=== PATIENT | female | born 1990 | race African-American/Black ===

== ENCOUNTER 2017-01-26 07:01 | Emergency (ER) | payer OTHER ==
[~2017-01-26] VITALS: Ht 175.3 cm; Wt 104.3 kg
[~2017-01-26 07:01] MED LIST: TRAMADOL HCL50 MG ORAL
[2017-01-26] MEDS ORDERED: NKM (07:22)
[2017-01-26 07:27] VITALS: BP 104/70
--- NOTE | 2017-01-26 07:32 | Emergency Room Report ---
History of Present Illness General Chief Complaint: Abdominal Pain Source: Patient Present Illness HPI Patient presents with suprapubic discomfort Reports that it started yesterday She feels a pressure when she urinates Patient states that she feels like it's a bladder infection she has had it before in the past Denies any fevers or chills denies any vomiting or diarrhea Denies any right lower quadrant pain denies any recent trauma Allergies: Coded Allergies: ACETAMINOPHEN (Unverified Allergy, Unknown, 12/27/13) HYDROCODONE (Unverified Allergy, Unknown, 12/27/13) Patient History Past Medical History: see triage record Pertinent Family History: none Last Menstrual Period: "2 months ago." Reviewed Nursing Documentation: PMH: Agreed, PSxH: Agreed Nursing Documentation-PMH Past Medical History: No History, Except For Hx Asthma: Yes Review of Systems All Other Systems: negative except mentioned in HPI Physical Exam Vital Signs Date Time Temp Pulse Resp B/P (MAP) Pulse Ox O2 Delivery O2 Flow Rate FiO2 01/26/17 07:17 98.1 85 17 104/70 99 Room Air Sp02 EP Interpretation: reviewed, normal General Appearance: well appearing, no apparent distress Head: normocephalic, atraumatic Eyes: bilateral eye PERRL, bilateral eye EOMI ENT: hearing grossly normal, normal pharynx, TMs + canals normal, uvula midline Neck: full range of motion, supple, no meningismus, no bony tend Respiratory: lungs clear, normal breath sounds, no rhonchi, no respiratory distress, no retraction, no accessory muscle use Cardiovascular #1: normal peripheral pulses, regular rate, rhythm, no edema, no gallop, no JVD, no murmur Gastrointestinal: normal bowel sounds, non tender - Subjectively however points to the suprapubic area, soft, no mass, no organomegaly, non-distended, no guarding, no hernia, no pulsatile mass, no rebound Genitourinary: no CVA tenderness Musculoskeletal: normal inspection Neurologic: oriented x3, responsive, progressive care manager III-XII nml as tested, motor strength/ tone normal, sensory intact Psychiatric: mood/affect normal Skin: normal color, no rash, warm/dry, palpation normal Lymphatic: normal inspection, no adenopathy Medical Decision Making Diagnostic Impression: Primary Impression: Abdominal pain Additional Impression: UTI (urinary tract infection) ER Course With the patient's history and examination, multiple differentials considered, including but not limited to , ectopic , ovarian torsion, gastritis, cholecystitis, pancreatitis, appendicitis Patient's a urine sample shows leukocytes and bacteria At this time I had discussion with the patient regarding her pain There are some indications for further evaluation of possible early appendicitis However the patient feels that she has a UTI does not want to have any further radiation At this time given her reevaluation she will have initial conservative outpatient trial It was again discussed regarding any increased pain localizing of the pain to the right side or any other discomfort to return to the ER more emergently , Labs Test 01/26/17 07:25 Urine Color Yellow Urine Appearance Clear Urine pH 6 (4.5-8.0) Urine Specific [place] 1.020 (1.005-1.035) Urine Protein Negative (NEGATIVE) Urine Glucose (UA) Negative (NEGATIVE) Urine Ketones Negative (NEGATIVE) Urine Occult Blood Negative (NEGATIVE) Urine Nitrite Negative (NEGATIVE) Urine Bilirubin Negative (NEGATIVE) Urine Urobilinogen 4 MG/DL (0.0-1.0) Urine Leukocyte Esterase 2+ (NEGATIVE) Urine RBC 2-4 /HPF (0 - 2) Urine WBC 15-20 /HPF (0 - 2) Urine Squamous Epithelial Cells Many /LPF (NONE/OCC) Urine Bacteria Few /HPF (NONE) Urine HCG, Qualitative Negative Last Vital Signs Date Time Temp Pulse Resp B/P (MAP) Pulse Ox O2 Delivery O2 Flow Rate FiO2 01/26/17 07:27 98.1 85 17 104/70 99 Room Air Status: improved Disposition: HOME, SELF-CARE Condition: Stable Scripts Phenazopyridine Hcl* (PYRIDIUM*) 100 Mg Tablet 100 MG ORAL THREE TIMES A DAY, #12 TAB Prov: YASMANY MORAN D.O. 01/26/17 Trimethoprim/Sulfamethoxazole 160/800* (BACTRIM DS TABLET*) 1 Each Tablet 1 TAB ORAL Q12H, #14 TAB 0 Refills Prov: YASMANY MORAN D.O. 01/26/17 Additional Instructions: Patient is provided with the discharge instructions notified to follow up with primary doctor in the next 2-3 days otherwise return to the er with any worsening symptoms. Please note that this report is being documented using [employer] technology. This can lead to erroneous entry secondary to incorrect interpretation by the dictating instrument. YASMANY MORAN D.O. Jan 26, 2017 07:32
[2017-01-26 07:54] LABS: APPEARANCE,URINE CLEAR; KETONES,URINE NEGATIVE (NEGATIVE); LEUKOCYTE ESTERASE ,URINE 2+ (NEGATIVE); NITRITE,URINE NEGATIVE (NEGATIVE); PH,URINE 6 (4.5-8.0); PROTEIN,URINE NEGATIVE (NEGATIVE); UROBILINOGEN,URINE 4 MG/DL (0.0-1.0)
[2017-01-26] MEDS ORDERED: BACTRIM DS TAB1 EAC1 ORAL (08:07)
[2017-01-26] MEDS ORDERED: PHENAZOPYRIDIN100 MG ORAL (08:07)
[2017-01-26 08:09] LABS: BACTERIA,URINE FEW /HPF; SQUAMOUS EPITHELIAL CELL,UR MANY /LPF (NONE/OCC); WBC,URINE 15-20 /HPF (0 - 2)
[2017-01-26 08:46] VITALS: BP 104/70
[2017-01-31] MEDS ORDERED: KEFLEX500 MG ORAL (10:13)
--- NOTE | 2017-02-06 21:22 | Emergency Room Report ---
Physical Exam Vital Signs Date Time Temp Pulse Resp B/P (MAP) Pulse Ox O2 Delivery O2 Flow Rate FiO2 01/26/17 07:17 98.1 85 17 104/70 99 Room Air Medical Decision Making Diagnostic Impression: Primary Impression: Abdominal pain Additional Impression: UTI (urinary tract infection) ER Course I spoke the patient on the phone. at 9:20 PM on 2016. She was prescribed Bactrim for UTI. She received a letter in the mail so she called back. Her treatment was about 2 weeks ago. She is completely asymptomatic. She has no urinary complaint. No dysuria or abdominal pain. I recommend routine followup with her primary care DrAlberto for recheck a urinalysis. I see no need for taking antibiotics since she is asymptomatic right now. Last Vital Signs Date Time Temp Pulse Resp B/P (MAP) Pulse Ox O2 Delivery O2 Flow Rate FiO2 01/26/17 08:46 98.1 85 17 104/70 99 Room Air Disposition: HOME, SELF-CARE Condition: Stable Scripts Cephalexin* (KEFLEX*) 500 Mg Capsule 500 MG ORAL Q6H for 7 Days, #28 CAP 0 Refills Prov: BUFFY PIMENTEL M.D. 01/31/17 Phenazopyridine Hcl* (PYRIDIUM*) 100 Mg Tablet 100 MG ORAL THREE TIMES A DAY, #12 TAB Prov: YASMANY MORAN D.O. 01/26/17 Trimethoprim/Sulfamethoxazole 160/800* (BACTRIM DS TABLET*) 1 Each Tablet 1 TAB ORAL Q12H, #14 TAB 0 Refills Prov: YASMANY MORAN D.O. 01/26/17 Referrals: NON PHYSICIAN (PCP) Patient Instructions: Urinary Tract Infection, [id number], Abdominal Pain, Adult Additional Instructions: Patient is provided with the discharge instructions notified to follow up with primary doctor in the next 2-3 days otherwise return to the er with any worsening symptoms. Please note that this report is being documented using [employer] technology. This can lead to erroneous entry secondary to incorrect interpretation by the dictating instrument. BASIM TIRADO M.D. Feb 06, 2017 21:22
== END 2017-01-26 08:48 | disposition home or self-care (01) ==
LOC: EMR 07:37
DX: R10.30 Lower abdominal pain, unspecified (principal); N39.0 Urinary tract infection, site not specified; J45.909 Unspecified asthma, uncomplicated; Z88.6 Allergy status to analgesic agent
CPT/HCPCS: 81003; 81025; 87086; 87181; 99284

== ENCOUNTER 2017-07-05 23:27 | Emergency (ER) | payer OTHER ==
[~2017-07-05] VITALS: Ht 175.3 cm; Wt 113.4 kg
[~2017-07-05 23:27] MED LIST changes: +BACTRIM DS TAB1 EAC1 ORAL; +KEFLEX500 MG ORAL; +NKM; +PHENAZOPYRIDIN100 MG ORAL
[2017-07-05 23:50] VITALS: BP 130/94
[2017-07-06] MEDS ORDERED: AMOXICILLIN500 MG ORAL (00:33)
[2017-07-06] MEDS ORDERED: IBUPROFEN600 M1 PO (00:33)
[2017-07-06 00:41] VITALS: BP 130/94
--- NOTE | 2017-07-06 07:02 | Emergency Room Report ---
History of Present Illness General Chief Complaint: Earache Source: Patient Present Illness HPI Patient's a 26-year-old female who presented after increased right sided earache. Patient was noted to have the gradual onset of symptoms. She reports having the recently used Q-tip and then began having worsening symptoms.The patient reports having increased pain for the past one week. Allergies: Coded Allergies: ACETAMINOPHEN (Unverified Allergy, Unknown, 12/27/13) HYDROCODONE (Unverified Allergy, Unknown, 12/27/13) Patient History Past Medical History: see triage record Last Menstrual Period: 06/17/17 Now: No : 1 Para: 1 Reviewed Nursing Documentation: PMH: Agreed; PSxH: Agreed Nursing Documentation-PMH Hx Asthma: Yes Review of Systems All Other Systems: negative except mentioned in HPI Physical Exam Vital Signs Date Time Temp Pulse Resp B/P (MAP) Pulse Ox O2 Delivery O2 Flow Rate FiO2 07/05/17 23:34 98.2 73 16 130/94 97 Room Air 98.2 General Appearance: well appearing, no apparent distress, alert, GCS 15 Head: normocephalic, atraumatic ENT: hearing grossly normal, normal voice, other - right tm bulging, fluid, erythema, no canal swelling or discharge Neck: full range of motion, supple Respiratory: no respiratory distress, speaking full sentences Musculoskeletal: no calf tenderness Neurologic: normal gait Psychiatric: mood/affect normal Skin: no rash Medical Decision Making Diagnostic Impression: Primary Impression: Otitis media Additional Impression: Earache, right ER Course Patient presented for ear pain. Differential diagnosis included was not limited to otitis media, malignant otitis externa, foreign body, cellulitis, mastoiditis, carotid dissection, myocardial infarction among others. Patient has a benign exam and does not appear to require any further imaging or laboratory testing at this time. The patient presented with what appears to be otitis media.The patient is advised to follow up with primary care doctor in 1- 2 days. Patient is advised to return if any worsening condition or if any changes in status that are concerning. This report is dictated with [employer] software which may occasionally lead to discrepancies related to use of this software. Last Vital Signs Date Time Temp Pulse Resp B/P (MAP) Pulse Ox O2 Delivery O2 Flow Rate FiO2 07/06/17 00:41 98.2 16 130/94 97 Room Air 208.8 07/05/17 23:34 73 Status: improved Disposition: HOME, SELF-CARE Condition: Stable Scripts Ibuprofen (Ibuprofen) 600 Mg Tablet 600 MG PO EVERY 8 HOURS, #30 TAB Prov: Alan Schuler 07/06/17 Amoxicillin* (AMOXIL*) 500 Mg Capsule 500 MG ORAL THREE TIMES A DAY, #21 CAP Prov: Alan Schuler 07/06/17 Patient Instructions: Otitis Media, Adult Alan Schuler July 06, 2017 07:02
== END 2017-07-06 00:42 | disposition home or self-care (01) ==
LOC: EMR 23:59
DX: H66.91 Otitis media, unspecified, right ear (principal); J45.909 Unspecified asthma, uncomplicated; Z88.6 Allergy status to analgesic agent
CPT/HCPCS: 99284

== ENCOUNTER 2017-07-17 07:28 | Emergency (ER) | payer MEDICAID, OTHER ==
[~2017-07-17] VITALS: Ht 175.3 cm; Wt 113.4 kg
[~2017-07-17 07:28] MED LIST changes: +AMOXICILLIN500 MG ORAL; +IBUPROFEN600 M1 PO
[2017-07-17 07:44] VITALS: BP 112/69
--- NOTE | 2017-07-17 07:55 | Emergency Room Report ---
History of Present Illness General Chief Complaint: Earache Source: Patient, Medical Record Present Illness HPI The patient presents with right ear pain. She's been on amoxicillin and was seen a week ago and told she had otitis media. She's been cleaning her ear aggressive with a Q-tip. There is some blood that was there since last night. She denies any fevers. Allergies: Coded Allergies: ACETAMINOPHEN (Unverified Allergy, Unknown, 12/27/13) HYDROCODONE (Unverified Allergy, Unknown, 12/27/13) Patient History Past Medical History: see triage record Social History: Denies: smoking Last Menstrual Period: 06/20/17 Reviewed Nursing Documentation: PMH: Agreed; PSxH: Agreed Nursing Documentation-PMH Past Medical History: No History, Except For Hx Asthma: Yes Review of Systems Constitutional: Denies: fever ENT: Reports: see HPI Respiratory: Denies: cough Gastrointestinal: Denies: diarrhea, nausea, vomiting Genitourinary: Denies: dysuria Skin: Denies: rash Neurological: Denies: headache Physical Exam Vital Signs Date Time Temp Pulse Resp B/P (MAP) Pulse Ox O2 Delivery O2 Flow Rate FiO2 07/17/17 07:35 98.0 83 18 112/69 96 Room Air 98.1 Sp02 EP Interpretation: reviewed, normal General Appearance: well appearing, no apparent distress Head: normocephalic, atraumatic Eyes: bilateral eye normal inspection, bilateral eye PERRL ENT: normal voice Neck: full range of motion, supple Respiratory: no respiratory distress, speaking full sentences Musculoskeletal: no calf tenderness Neurologic: alert, normal gait Psychiatric: mood/affect normal Skin: no rash Medical Decision Making Diagnostic Impression: Primary Impression: Otitis externa of right ear Qualified Codes: H60.311 - Diffuse otitis externa, right ear ER Course Exam c/w OE. No evidence of perforation though possibility of small perf present as some cerumen obscures total view of TM. Needs cipro, analgesia and ciprodex. Patient stable for outpatient observation and treatment. Status: improved Disposition: HOME, SELF-CARE Condition: Improved Scripts Ciprofloxacin Hcl/Dexameth (CIPRODEX OTIC SUSPENSION) 7.5 Ml Drops.susp 4 DROP RIGHT EAR TWICE A DAY, #10 ML Prov: Nick Archer M.D. 07/17/17 Tramadol Hcl* (ULTRAM*) 50 Mg Tablet 50 MG ORAL Q6H PRN for For Pain, #10 TAB 0 Refills Prov: Nick Archer M.D. 07/17/17 Ciprofloxacin Hcl* (CIPROFLOXACIN HCL*) 500 Mg Tablet 500 MG ORAL Q12H, #14 TAB 0 Refills Prov: Nick Archer M.D. 07/17/17 Ibuprofen* (MOTRIN*) 600 Mg Tablet 600 MG ORAL Q6H PRN for For Pain, #20 TAB Prov: Nick Archer M.D. 07/17/17 Referrals: [facility],REFERRING (PCP) Nick Archer M.D. July 17, 2017 07:55
[2017-07-17] MEDS ORDERED: Ciprofloxacin 500mg tab ORAL ONE (08:00)
[2017-07-17] MEDS ORDERED: CIPRODEX OTIC7.5 M1 RIGHT EAR (08:18)
[2017-07-17] MEDS ORDERED: TRAMADOL HCL50 MG ORAL (08:18)
[2017-07-17] MEDS ORDERED: CIPROFLOXACIN500 M2 ORAL (08:18)
[2017-07-17] MEDS ORDERED: IBUPROFEN600 MG ORAL (08:18)
[2017-07-17 08:26] VITALS: BP 112/69
== END 2017-07-17 08:24 | disposition home or self-care (01) ==
LOC: EMR 07:46
DX: H60.91 Unspecified otitis externa, right ear (principal); J45.909 Unspecified asthma, uncomplicated; Z88.6 Allergy status to analgesic agent; Z88.5 Allergy status to narcotic agent
CPT/HCPCS: 99284

== ENCOUNTER 2017-11-21 09:31 | Emergency (ER) | payer SELFPAY ==
[~2017-11-21] VITALS: Ht 175.3 cm; Wt 99.8 kg
[~2017-11-21 09:31] MED LIST changes: +CIPRODEX OTIC7.5 M1 RIGHT EAR; +CIPROFLOXACIN500 M2 ORAL; +IBUPROFEN600 MG ORAL
[2017-11-21] MEDS ORDERED: Ipratropium 0.02% Inh Soln 2.5ml UD HHN ONE (10:00)
[2017-11-21] MEDS ORDERED: Albuterol ud Inhalation HHN ONE (10:00)
[2017-11-21 10:20] VITALS: BP 131/84
--- NOTE | 2017-11-21 10:21 | Emergency Room Report ---
History of Present Illness General Chief Complaint: Asthma Source: Patient Present Illness HPI Patient with 3 days of increased wheezing, cough and sore throat. Using mother' s inhaler. Not worst attack. Here for meds. Some chest tightness, though denies pain. Has had prednisone in the past. H/O eczema. Rashes stable. No NVD, abdominal pain, extremity pain or edema. LNMP normal 11/09. Allergies: Coded Allergies: ACETAMINOPHEN (Unverified Allergy, Unknown, 12/27/13) HYDROCODONE (Unverified Allergy, Unknown, 12/27/13) Patient History Past Medical History: see triage record Social History: Denies: smoking, alcohol use, drug use Social History Narrative home with child Last Menstrual Period: 11/09/2017 Now: No Reviewed Nursing Documentation: PMH: Agreed; PSxH: Agreed Nursing Documentation-PMH Past Medical History: No History, Except For Hx Asthma: Yes Review of Systems All Other Systems: negative except mentioned in HPI Physical Exam Vital Signs Date Time Temp Pulse Resp B/P (MAP) Pulse Ox O2 Delivery O2 Flow Rate FiO2 11/21/17 09:36 98.2 92 16 131/84 94 Room Air 98.2 11/21/17 10:00 21 Sp02 EP Interpretation: reviewed, normal General Appearance: well appearing, no apparent distress Head: normocephalic, atraumatic Eyes: bilateral eye normal inspection, bilateral eye PERRL ENT: hearing grossly normal, normal voice, moist mucus membranes, pharyngeal erythema Neck: full range of motion, supple Respiratory: chest non-tender, no respiratory distress, wheezing, expiration Cardiovascular #1: regular rate, rhythm, no edema Cardiovascular #2: 2+ radial (R) Gastrointestinal: normal bowel sounds, non tender, overweight Musculoskeletal: no calf tenderness Neurologic: alert, oriented x3, normal gait, grossly normal Psychiatric: mood/affect normal Skin: other - eczematous changes neck Medical Decision Making Diagnostic Impression: Primary Impression: Asthma Qualified Codes: J45.41 - Moderate persistent asthma with (acute) exacerbation ER Course Patient presents with wheezing, cough and sore throat. DDx: URI, asthma exacerbation, bronchitis amongst others. No evidence of bacterial infection. Based on hx and px, doubt pneumonia. Requests breathing treatment. Will also give prednisone. Improved with treatment. Discussed treatment plan. Patient stable for outpatient observation and treatment. Last Vital Signs Date Time Temp Pulse Resp B/P (MAP) Pulse Ox O2 Delivery O2 Flow Rate FiO2 11/21/17 11:10 98.2 16 126/78 98 Room Air 21 98.2 11/21/17 10:20 85 Status: improved Disposition: HOME, SELF-CARE Condition: Improved Scripts Albuterol Sulfate* (ALBUTEROL SULFATE MDI*) 8.5 Gm Hfa.aer.ad 2 PUFF INH Q6H, #1 EA 1 Refill Prov: Nick Archer M.D. 11/21/17 Guaifenesin/Dextromethorphan (Guaifenesin Dm Syrup) 5 Ml Syrup 1 TSP ORAL Q6HR, #118 ML 0 Refills Prov: Nick Archer M.D. 11/21/17 Prednisone* (PREDNISONE*) 20 Mg Tablet 40 MG ORAL DAILY, #6 TAB Prov: Nick Archer M.D. 11/21/17 Referrals: [facility]/,REFERRING (PCP) Nick Archer M.D. Nov 21, 2017 10:21
[2017-11-21] MEDS ORDERED: GUAIFENESIN DM118 M1 ORAL (11:02)
[2017-11-21] MEDS ORDERED: ALBUTEROL SULF8.5 GM INH (11:02)
[2017-11-21] MEDS ORDERED: PREDNISONE20 MG ORAL (11:02)
[2017-11-21 11:10] VITALS: BP 126/78
== END 2017-11-21 11:36 | disposition home or self-care (01) ==
LOC: EMR 09:50
DX: J45.41 Moderate persistent asthma with (acute) exacerbation (principal); J02.9 Acute pharyngitis, unspecified; Z88.5 Allergy status to narcotic agent; Z88.6 Allergy status to analgesic agent
CPT/HCPCS: 94640; 94664; 99284; J7512

== ENCOUNTER 2018-03-02 18:43 | Emergency (ER) | payer MEDICAID ==
[~2018-03-02] VITALS: Ht 175.3 cm; Wt 99.8 kg
[~2018-03-02 18:43] MED LIST changes: +ALBUTEROL SULF8.5 GM INH; +GUAIFENESIN DM118 M1 ORAL; +PREDNISONE20 MG ORAL
[2018-03-02 19:10] VITALS: BP 133/89
--- NOTE | 2018-03-02 19:15 | NUR ---
ED Nurse Note: pt walked in c/o jared earache, worsen on left side, noted some redness and scabs, no tenderness or discharge. PA at the bedside, will continue to monitor, pt denies injury but states she uses qtip to clean
[2018-03-02] MEDS ORDERED: DEBROX15 M1 BOTH EARS (19:22)
[2018-03-02] MEDS ORDERED: CLARITIN-D 241 EACH PO (19:22)
--- NOTE | 2018-03-02 19:24 | Emergency Room Report ---
History of Present Illness General Chief Complaint: Earache Present Illness HPI 27-year-old female patient presents the ER complaining of bilateral ear pain times 1 day. Reports symptoms began yesterday. Reports history of using Q- tips. Denies ear drainage. Denies fever, chest pain, shortness of breath. Denies tinnitus. Denies vomiting or diarrhea. Denies headache. Denies vertigo. Denies recent swimming. Reports nasal congestion symptoms during this time. Reports runny nose. Denies taking medications for relief of symptoms. Denies other acute complaints. Denies hearing loss. Allergies: Coded Allergies: ACETAMINOPHEN (Unverified Allergy, Unknown, 12/27/13) HYDROCODONE (Unverified Allergy, Unknown, 12/27/13) Patient History Past Medical History: see triage record Last Menstrual Period: 02/15/2018 Now: No : 1 Para: 1 Reviewed Nursing Documentation: PMH: Agreed; PSxH: Agreed Nursing Documentation-PMH Hx Asthma: Yes Review of Systems All Other Systems: negative except mentioned in HPI Physical Exam Vital Signs Date Time Temp Pulse Resp B/P (MAP) Pulse Ox O2 Delivery O2 Flow Rate FiO2 03/02/18 19:01 98.1 67 18 133/89 98 Room Air Sp02 EP Interpretation: reviewed, normal General Appearance: well appearing, no apparent distress, alert, GCS 15, non- toxic Head: normocephalic, atraumatic Eyes: bilateral eye normal inspection, bilateral eye PERRL ENT: hearing grossly normal, normal pharynx, no angioedema, normal voice, TMs + canals normal, uvula midline, moist mucus membranes, other - Mild cerumen noted bilaterally, no foreign body Neck: full range of motion, no bony tend Respiratory: lungs clear, normal breath sounds, no rhonchi, no respiratory distress, no accessory muscle use, no wheezing, speaking full sentences Cardiovascular #1: regular rate, rhythm, no edema Musculoskeletal: back normal, digits/nails normal, gait/station normal, normal range of motion, non-tender Neurologic: alert, oriented x3, responsive, drum tester III-XII nml as tested, motor strength/tone normal, sensory intact, cerebellar normal, normal gait, speech normal Psychiatric: mood/affect normal Skin: no rash Lymphatic: no adenopathy Medical Decision Making PA Attestation Dr. Perry is my supervising Physician whom patient management has been discussed with. Diagnostic Impression: Primary Impression: Earache symptoms in both ears ER Course Pt presents to ED c/o bilateral ear pain. DDX considered but are not limited to rhinitis, sinusitis, otitis media, otitis externa, cellulitis, mastoiditis, cerumen impaction. Low suspicion for mastoiditis, no swelling or erythema noted posterior to ear, no TTP. VITAL SIGNS are WNL, patient is afebrile. ER COURSE: PE shows non-ertyehamtous TM bilaterally, no effusion, no TM rupture. No pain with ear pulling, nonerythematous or edematous ear canal. Low suspicion for otitis media or otitis externa. Mild cerumen noted. Will provide patient with Debrox. Advised patient against using Q-tips. Like earache secondary to congestion symptoms. ER precautions given. Followup with ENT specialist. DISCHARGE: -Rx provided for Debrox -Rx provided for Claritin-D Take Tylenol and OTC medications for symptom relief; use as directed. At this time pt is stable for d/c to home. Patient is resting comfortably, in no acute disterss nontoxic appearing, talking without difficulty. Patient to take medications as instructed Will provide with patient care instructions and any necessary prescriptions. Care plan and follow-up instructions provided. Patient instructed to follow-up with primary care provider in 3 - 5 days. Patient questions asked and answered. Reports understanding and agreement to treatment plan. ER precautions given. Patient instructed to return to ER immediately for any new or worsening of symptoms including but not limited to increasing SOB, persistent fever. - Please note that this Emergency Department Report was dictated using [employer] immunology technology software, occasionally this can lead to erroneous entry secondary to interpretation by the dictation equipment. Last Vital Signs Date Time Temp Pulse Resp B/P (MAP) Pulse Ox O2 Delivery O2 Flow Rate FiO2 03/02/18 19:01 98.1 67 18 133/89 98 Room Air Disposition: HOME, SELF-CARE Condition: Stable Scripts Carbamide Peroxide (DEBROX) 15 Ml Drops 5 DROP BOTH EARS TWICE A DAY for 4 Days, ML 0 Refills Prov: Les Castillo P.A. 03/02/18 Loratadine/Pseudoephedrine (CLARITIN-D 24 HOUR TABLET) 1 Each Tab.er.24h 1 TAB PO DAILY, #24 TAB Prov: AnnaLes bauman 03/02/18 Patient Instructions: Cerumen Impaction, Earache Additional Instructions: Followup with primary care provider in 3 -5 days. Request referral to ENT. Avoid swimming, does not use Q-tips in ear. Take medications as directed. Patient questions asked and answered. ER precautions given, patient instructed to return to ER immediately for any new or worsening of symptoms. Les Castillo Mar 02, 2018 19:24
--- NOTE | 2018-03-02 19:27 | NUR ---
ED Nurse Note: pt d/c paperwork and prescription provided, pt education done, id band removd, vss, verbalized understanding and agrees with plan. pt advised to follow up w/ pcp and return if worsen.
[2018-03-02 19:28] VITALS: BP 130/88
== END 2018-03-02 19:28 | disposition home or self-care (01) ==
LOC: EMR 19:15
DX: H92.03 Otalgia, bilateral (principal); J45.909 Unspecified asthma, uncomplicated; Z88.6 Allergy status to analgesic agent
CPT/HCPCS: 99283

== ENCOUNTER 2018-03-14 12:57 | Emergency (ER) | payer MEDICAID ==
[~2018-03-14] VITALS: Ht 175.3 cm; Wt 99.8 kg
[~2018-03-14 12:57] MED LIST changes: +CLARITIN-D 241 EACH PO; +DEBROX15 M1 BOTH EARS
[2018-03-14 13:01] VITALS: BP 116/65
[2018-03-14] MEDS ORDERED: CORTISPORIN EAR10 ML LEFT EAR (13:20)
[2018-03-14] MEDS ORDERED: IBUPROFEN600 MG ORAL (13:20)
--- NOTE | 2018-03-14 13:21 | Emergency Room Report ---
History of Present Illness General Chief Complaint: Earache Source: Patient, Medical Record Present Illness HPI 27-year-old female patient presents the ER complaining of left ear pain for the past day. Reports was previously seen in the ER a few weeks ago for bilateral earache, states complete full course of medication and symptoms resolved. Reports new onset of symptoms since yesterday. Denies ear drainage. Denies tinnitus. Denies vomiting or vision changes. Denies fever, chest pain, shortness of breath. Denies other acute symptoms. Requesting pain medication. States has not follow with primary care provider or seen ENT specialist. Allergies: Coded Allergies: ACETAMINOPHEN (Unverified Allergy, Unknown, 12/27/13) HYDROCODONE (Unverified Allergy, Unknown, 12/27/13) Patient History Past Medical History: see triage record Last Menstrual Period: 02/20/18 Reviewed Nursing Documentation: PMH: Agreed; PSxH: Agreed Nursing Documentation-PMH Past Medical History: No History, Except For Hx Asthma: Yes Review of Systems All Other Systems: negative except mentioned in HPI Physical Exam Vital Signs Date Time Temp Pulse Resp B/P (MAP) Pulse Ox O2 Delivery O2 Flow Rate FiO2 03/14/18 13:01 98.4 80 18 116/65 98 Room Air Sp02 EP Interpretation: reviewed, normal General Appearance: well appearing, no apparent distress, alert, GCS 15, non- toxic Head: normocephalic, atraumatic Eyes: bilateral eye normal inspection, bilateral eye PERRL ENT: hearing grossly normal, normal pharynx, no angioedema, normal voice, TMs + canals normal - Right ear, uvula midline, moist mucus membranes, other - Left ear: Erythematous and mildly edematous ear canal with purulent material, TM intact, no effusion, nonerythematous TM, no TM puncture Neck: full range of motion Respiratory: lungs clear, normal breath sounds, no rhonchi, no respiratory distress, no accessory muscle use, no wheezing, speaking full sentences Cardiovascular #1: regular rate, rhythm, no edema Neurologic: alert, oriented x3, responsive, motor strength/tone normal, sensory intact Psychiatric: mood/affect normal Skin: no rash Lymphatic: no adenopathy Medical Decision Making PA Attestation Dr. Andrew is my supervising Physician whom patient management has been discussed with. Diagnostic Impression: Primary Impression: Otitis externa of left ear ER Course Pt presents to ED c/o left ear pain. DDX considered but are not limited to rhinitis, sinusitis, otitis media, otitis externa, cellulitis, mastoiditis, cerumen impaction. Low suspicion for mastoiditis, no swelling or erythema noted posterior to ear, no TTP. VITAL SIGNS are WNL, patient is afebrile. ORDERS: none required at this time, diagnosis is clinical ED INTERVENTIONS: Repeat exam shows likely otitis externa, nonerythematous TM without effusion, no rupture, erythematous and edematous ear canal, low suspicion for otitis media. Avoid swimming. do not use q-tips. ER precautions given. DISCHARGE: -Rx provided for Neomycin/polmyxin B Rx provided for ibuprofen At this time pt is stable for d/c to home. resting comfortably chest, nontoxic appearing. Patient to take medications as instructed Will provide with patient care instructions and any necessary prescriptions. Care plan and follow-up instructions provided. Patient instructed to follow-up with primary care in 3 - 5 days. Patient questions asked and answered. ER precautions given. Patient instructed to return to ER immediately for any new or worsening of symptoms including but not limited to increasing SOB, persistent fever. - Please note that this Emergency Department Report was dictated using [employer] technology software, occasionally this can lead to erroneous entry secondary to interpretation by the dictation equipment. Last Vital Signs Date Time Temp Pulse Resp B/P (MAP) Pulse Ox O2 Delivery O2 Flow Rate FiO2 03/14/18 13:01 98.4 80 18 116/65 98 Room Air Disposition: HOME, SELF-CARE Condition: Stable Scripts Ibuprofen* (MOTRIN*) 600 Mg Tablet 600 MG ORAL Q8H PRN for For Pain, #30 TAB 0 Refills Prov: Les Castillo P.A. 03/14/18 Neomycin/Polymyxin B Sulf/Hc* (CORTISPORIN EAR SOLUTION*) 10 Ml Solution 4 DROP LEFT EAR QID, #10 ML 0 Refills Prov: Les Castillo P.A. 03/14/18 Patient Instructions: Otitis Externa, [id number] Additional Instructions: Followup with primary care provider in 3 -5 days. Request referral to ENT. Avoid swimming, does not use Q-tips in ear. Take medications as directed. Patient questions asked and answered. ER precautions given, patient instructed to return to ER immediately for any new or worsening of symptoms. Les Castillo Mar 14, 2018 13:20
[2018-03-14 13:36] VITALS: BP 116/65
== END 2018-03-14 13:43 | disposition home or self-care (01) ==
LOC: EMR 13:30
DX: H60.92 Unspecified otitis externa, left ear (principal); J45.909 Unspecified asthma, uncomplicated; Z88.6 Allergy status to analgesic agent
CPT/HCPCS: 99282

== ENCOUNTER 2018-10-11 23:46 | Emergency (ER) | payer MEDICAID ==
[~2018-10-11] VITALS: Ht 175.3 cm; Wt 113.4 kg
[~2018-10-11 23:46] MED LIST changes: +CORTISPORIN EAR10 ML LEFT EAR
--- NOTE | 2018-10-12 00:05 | NUR ---
ED Nurse Note: Patient walked in to ER c/o right limph node sweling behind her ear. AAO x4, VSS at this time, skin is warm to touch.
[2018-10-12] MEDS ORDERED: CEPHALEXIN500 MG ORAL (00:07)
[2018-10-12] MEDS ORDERED: IBUPROFEN600 MG ORAL (00:07)
--- NOTE | 2018-10-12 00:07 | Emergency Room Report ---
History of Present Illness General Chief Complaint: General Complaint Source: Patient Present Illness HPI This is a 28-year-old female with no past medical history. She presents with chief complaint of lumps to the back of her left ear. Onset for last few days. No trauma. She did braid her hair a week ago. No nausea no vomiting. No itchiness. Tender to palpation. No other complaint. Allergies: Coded Allergies: ACETAMINOPHEN (Unverified Allergy, Unknown, 12/27/13) HYDROCODONE (Unverified Allergy, Unknown, 12/27/13) Patient History Past Medical History: see triage record, old chart reviewed Past Surgical History: none Pertinent Family History: none Social History: Denies: smoking Last Menstrual Period: 09/28/18 Now: No : 1 Para: 1 Immunizations: other Reviewed Nursing Documentation: PMH: Agreed; PSxH: Agreed Nursing Documentation-PMH Past Medical History: No History, Except For Hx Asthma: Yes Review of Systems Eye: Denies: eye pain, blurred vision ENT: Reports: ear pain; Denies: nose congestion, throat swelling Respiratory: Denies: cough, shortness of breath Cardiovascular: Denies: chest pain, palpitations Gastrointestinal: Denies: abdominal pain, diarrhea, nausea, vomiting Musculoskeletal: Denies: back pain, joint pain Skin: Denies: rash Neurological: Denies: headache, numbness Endocrine: Denies: increased thirst, increased urine Hematologic/Lymphatic: Denies: easy bruising All Other Systems: negative except mentioned in HPI Physical Exam Vital Signs Date Time Temp Pulse Resp B/P (MAP) Pulse Ox O2 Delivery O2 Flow Rate FiO2 10/11/18 23:49 98.1 72 16 120/86 (97) 97 Room Air Vitals normal Sp02 EP Interpretation: reviewed, normal General Appearance: well appearing, no apparent distress, alert Head: normocephalic, atraumatic Eyes: bilateral eye PERRL, bilateral eye EOMI ENT: hearing grossly normal, normal pharynx, other - Postauricular enlarged lymph node, left. TM normal Neck: full range of motion, supple, no meningismus Respiratory: chest non-tender, lungs clear, normal breath sounds Cardiovascular #1: regular rate, rhythm, no murmur Gastrointestinal: normal bowel sounds, non tender, no mass, no organomegaly, no bruit, non-distended Musculoskeletal: back normal, gait/station normal, normal range of motion Psychiatric: mood/affect normal Medical Decision Making Diagnostic Impression: Primary Impression: Adenitis, acute ER Course Patient presents with left postauricular adenitis. Will put on antibiotics. No abscess seen. Did not see any issue with her scalp. Last Vital Signs Date Time Temp Pulse Resp B/P (MAP) Pulse Ox O2 Delivery O2 Flow Rate FiO2 10/11/18 23:49 98.1 72 16 120/86 (97) 97 Room Air Status: unchanged Disposition: HOME, SELF-CARE Condition: Stable Scripts Ibuprofen* (MOTRIN*) 600 Mg Tablet 600 MG ORAL THREE TIMES A DAY, #30 TAB 0 Refills Prov: Eddie Cosby MD 10/12/18 Cephalexin* (KEFLEX*) 500 Mg Capsule 500 MG ORAL TID, #21 CAP Prov: Eddie Cosby MD 10/12/18 Additional Instructions: Follow-up with your doctor in 7 days for recheck. Return if worse. Eddie Cosby MD Oct 12, 2018 00:07
[2018-10-12 00:14] VITALS: BP 120/86
[2018-10-12 00:15] VITALS: BP 120/86
--- NOTE | 2018-10-12 00:15 | NUR ---
ED Nurse Note: Pt cleared by health care Provider for discharge. DC instructions/prescription was given and explained to pt and verbalized understanding of teachings. All medical deviecs such as ID band removed. Pt is AAO x4, ambulatory and left with all personal belongings.
== END 2018-10-12 00:15 | disposition home or self-care (01) ==
LOC: EMR 23:59
DX: L04.0 Acute lymphadenitis of face, head and neck (principal); Z88.6 Allergy status to analgesic agent
CPT/HCPCS: 99282